=== PATIENT | male | born 2005 | race Caucasian/White ===

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

== ENCOUNTER 2025-04-21 02:40 | Emergency (ER) | payer MEDICAID ==
[2025-04-21 02:46] VITALS: TEMP 99.7
[2025-04-21 03:37] LABS: BASOPHIL % 0.9 % (0.2-1.2); Basophil (Absolute #) 0.10 x10^3/uL (0.01-0.08); Eosinophil (Absolute #) 0.14 x10^3/uL (0.04-0.54); Hematocrit 47.8 % (40.1-51.0); Hemoglobin 16.8 g/dL (13.7-17.5); IMMATURE GRAN # 0.06 x10^3u/L (0.001-0.031); IMMATURE GRAN % 0.5 % (0.001-0.429); Lymphocyte (Absolute #) 2.38 x10^3/uL (1.32-3.57); Mean Corpuscular Hemoglobin 29.0 pg (25.7-32.2); Mean Corpuscular Hgb Concent. 35.1 g/dL (32.3-36.5); Monocyte (Absolute #) 1.27 x10^3/uL (0.30-0.82); NUCLEATED RBC # 0.00 x10^3u/L (0.00-0.012); NUCLEATED RBC % 0.0 % (0.00-0.2); Platelet Count 224 x10^3/uL (163-337); Red Blood Count 5.80 x10^6/uL (4.63-6.08); White Blood Count 10.9 x10^3/uL (4.23-9.07)
[2025-04-21 04:06] LABS: Calcium 10.6 mg/dL (8.4-10.2); Creatinine 1 1.01 mg/dL (0.66-1.25); EST GLOMERULAR FILTRATION RATE 109.9 ML/MIN; Glucose 111.0 mg/dL (74-106); Potassium 3.4 mmol/L (3.5-5.1); SGOT/AST 39.0 U/L (17-59); SGPT/ALT 30.0 U/L (0-50); Total Protein 9.0 g/dL (6.3-8.2)
[2025-04-21 04:07] LABS: Carbon Dioxide 14.0 mmol/L (22-30)
[2025-04-21] MEDS ORDERED: Lactated Ringers 1,000 ML IV ONE (04:25)
[2025-04-21] MEDS: Lactated Ringers 1,000 ML IV ONE (04:27)
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
[2025-04-21 04:42] LABS: ETHYL ALCOHOL < 10 mg/dL (0-10)
[2025-04-21 04:54] LABS: Amphetamine,Urine NEGATIVE (NEGATIVE); Barbiturate,Urine NEGATIVE (NEGATIVE); Benzodiazepine,Urine NEGATIVE (NEGATIVE); Cocaine,Urine NEGATIVE (NEGATIVE); Methadone,Urine NEGATIVE (NEGATIVE); Opiate,Urine NEGATIVE (NEGATIVE); PCP,Urine NEGATIVE (NEGATIVE); THC,Urine NEGATIVE (NEGATIVE)
[2025-04-21 05:04] VITALS: O2SAT 99
[2025-04-21] MEDS ORDERED: xanAX 0.5 MG ONE (05:26)
[2025-04-21] MEDS: xanAX 0.5 MG PO ONE (05:27)
[2025-04-21 07:03] VITALS: BP 112/71; PULSE 73; RESP 20
--- NOTE | 2025-04-21 08:41 | XRAY ---
Indication: Hyperventilating. Comparison: July 10, 2019 Portable chest is now slightly rotated. Normal appearing heart, lungs, and bony thorax.
== END 2025-04-21 07:01 | disposition home or self-care (01) ==
LOC: ED 02:40
DX: F41.0 Panic disorder [episodic paroxysmal anxiety] (principal); Z72.0 Tobacco use